=== PATIENT | female | born 1950 | race Asian ===

== ENCOUNTER 2018-01-23 14:07 | Inpatient (IN) | payer MEDICARE, BC ==
[2018-01-23 14:35] LABS: ADD MAN DIFF? NO
[2018-01-23 14:40] LABS: BASOPHIL # 0.1 10^3/ul (0.0-0.1); BASOPHILS % 0.7 % (0.0-2.0); EOSINOPHILS # 0.1 10^3/ul (0.0-0.5); EOSINOPHILS % 0.6 % (0.0-7.0); HEMATOCRIT 45.1 % (37.0-47.0); HEMOGLOBIN 14.1 g/dl (12.0-16.0); LYMPHOCYTES # 3.1 10^3/ul (0.8-2.9); LYMPHOCYTES % 32.5 % (15.0-51.0); MEAN CORPUSCULAR HEMOGLOBIN 21.6 pg (29.0-33.0); MEAN CORPUSCULAR HGB CONC 31.3 g/dl (32.0-37.0); MEAN PLATELET VOLUME 9.4 fl (7.4-10.4); MONOCYTE # 0.7 10^3/ul (0.3-0.9); MONOCYTES % 7.5 % (0.0-11.0); NEUTROPHIL # 5.6 10^3/ul (1.6-7.5); NEUTROPHILS % 58.5 % (39.0-77.0); PLATELET COUNT 484 10^3/UL (140-415); RED BLOOD COUNT 6.54 10^6/ul (4.20-5.40)
[2018-01-23 14:40] LABS: WHITE BLOOD COUNT 9.5 10^3/ul (4.8-10.8)
[2018-01-23 14:54] LABS: HEMOGLOBIN A1C 5.5 % (0-5.9)
[2018-01-23 15:00] LABS: INR 0.87; PROTIME 11.9 Sec (11.9-14.9); PT RATIO 0.9
[2018-01-23 15:01] LABS: PARTIAL THROMBOPLASTIN TIME 30.9 Sec (23.0-35.0)
[2018-01-23 15:37] LABS: ANION GAP 15 (5-13); BLOOD UREA NITROGEN 22 mg/dl (7-20); CARBON DIOXIDE 27 mmol/L (21-31); CHLORIDE 100 mmol/L (97-110); CHOL/HDL RATIO 4.8 RATIO; CHOLESTEROL 235 mg/dl (100-200); CREATININE 0.91 mg/dl (0.44-1.00); Estimated GFR > 60 mL/min (>60); GLUCOSE 142 mg/dl (70-220); HDL CHOLESTEROL 48 mg/dl (35-98); LDL CHOLESTEROL,CALCULATED 144 mg/dl; POTASSIUM 3.1 mmol/L (3.5-5.1); SODIUM 142 mmol/L (135-144); TRIGLYCERIDES 215 mg/dl (0-149)
[2018-01-23 15:46] LABS: TROPONIN-I < 0.012 ng/ml (0.000-0.120)
[2018-01-23] MEDS: ASPIRIN 325 MG TAB PO (15:47)
[2018-01-23 16:03] LABS: ADD UMIC YES; UR ASCORBIC ACID NEGATIVE (NEGATIVE); UR BILIRUBIN (Dip) NEGATIVE (NEGATIVE); UR BLOOD (Dip) 1+ mg/dL (NEGATIVE); UR CLARITY SLIGHTLY CLOUDY (CLEAR); UR COLOR YELLOW (YELLOW); UR GLUCOSE (Dip) NEGATIVE (NEGATIVE); UR KETONES (Dip) NEGATIVE (NEGATIVE); UR LEUKOCYTE ESTERASE (Dip) NEGATIVE Leu/ul (NEGATIVE); UR MUCUS FEW /HPF (NONE SEEN); UR NITRITE (Dip) NEGATIVE (NEGATIVE); UR RBC 3 /HPF (0-5); UR TOTAL PROTEIN (Dip) 3+ mg/dl (NEGATIVE); UR UROBILINOGEN (Dip) NEGATIVE (NEGATIVE); UR WBC 6 /HPF (0-5)
[2018-01-23 16:15] LABS: AMPHETAMINE/METHAMPHETAMINE Negative (NEGATIVE); BARBITURATES Negative (NEGATIVE); BENZODIAZEPINES Negative (NEGATIVE); CANNABINOIDS Negative (NEGATIVE); COCAINE Negative (NEGATIVE); OPIATES Negative (NEGATIVE)
[2018-01-23] MEDS: SOD CHLORIDE 0.45% 1,000 ML IV (16:33)
[2018-01-23] MEDS ORDERED: DOCUSATE SODIUM 100 MG CAP PO (17:00)
[2018-01-23] MEDS ORDERED: ONDANSETRON 4 MG INJ IV (17:00)
[2018-01-23] MEDS ORDERED: LORAZEPAM 2 MG INJ IV (17:00)
[2018-01-23] MEDS ORDERED: NITROGLYCERIN (SL) 0.4 MG TAB SL (17:00)
[2018-01-23] MEDS ORDERED: HYDROCODONE/APAP (5/325) TAB PO (17:00)
[2018-01-23] MEDS ORDERED: NACL 0.9% 3 ML SYG IV (17:00)
[2018-01-23] MEDS ORDERED: morphine 2 MG INJ IV (17:00)
[2018-01-23] MEDS ORDERED: NA PHOSPHATE/BIPHOS 133 ML ENEMA PR (17:00)
[2018-01-23] MEDS ORDERED: ALBUTEROL/IPRATROPIUM (NEB) 3 ML AMP HHN (17:00)
[2018-01-23] MEDS ORDERED: MAGNESIUM HYDROXIDE 30ML CUP PO (17:00)
[2018-01-23 17:22] LABS: INR 0.86; PROTIME 11.8 Sec (11.9-14.9); PT RATIO 0.9
[2018-01-23 17:23] LABS: PARTIAL THROMBOPLASTIN TIME 30.4 Sec (23.0-35.0)
[2018-01-23] MEDS: hydrALAzine 20 MG INJ IV (17:59)
[2018-01-23] MEDS ORDERED: HEPARIN 5,000 UNIT/0.5 ML VIAL (20:11)
[2018-01-23 20:15] LABS: FREE T4 (FREE THYROXINE) 1.37 ng/dl (0.78-2.44)
[2018-01-23] MEDS: ATORVASTATIN 80 MG TAB PO (20:32)
[2018-01-23] MEDS: HEPARIN 5,000 UNIT/1 ML VIAL SC (20:46)
[2018-01-24] MEDS: SOD CHLORIDE 0.45% 1,000 ML IV ×2 (05:02→19:13)
[2018-01-24] MEDS: PANTOPRAZOLE (EC) 40 MG TAB PO (05:03)
[2018-01-24 06:11] LABS: ADD MAN DIFF? NO
[2018-01-24 06:12] LABS: BASOPHIL # 0.1 10^3/ul (0.0-0.1); BASOPHILS % 0.9 % (0.0-2.0); EOSINOPHILS % 0.5 % (0.0-7.0); HEMATOCRIT 41.1 % (37.0-47.0); LYMPHOCYTES % 26.9 % (15.0-51.0); MEAN CORPUSCULAR HEMOGLOBIN 21.8 pg (29.0-33.0); MEAN CORPUSCULAR HGB CONC 31.6 g/dl (32.0-37.0); MEAN CORPUSCULAR VOLUME 68.8 fl (82.0-101.0); MEAN PLATELET VOLUME 9.9 fl (7.4-10.4); MONOCYTE # 0.5 10^3/ul (0.3-0.9); MONOCYTES % 6.9 % (0.0-11.0); NEUTROPHIL # 4.9 10^3/ul (1.6-7.5); NEUTROPHILS % 64.4 % (39.0-77.0); PLATELET COUNT 453 10^3/UL (140-415); RED BLOOD COUNT 5.97 10^6/ul (4.20-5.40)
[2018-01-24 06:12] LABS: WHITE BLOOD COUNT 7.6 10^3/ul (4.8-10.8)
[2018-01-24 06:40] LABS: ANION GAP 14 (5-13); BLOOD UREA NITROGEN 16 mg/dl (7-20); CALCIUM 9.2 mg/dl (8.4-10.2); CARBON DIOXIDE 27 mmol/L (21-31); CHLORIDE 101 mmol/L (97-110); CREATININE 0.73 mg/dl (0.44-1.00); Estimated GFR > 60 mL/min (>60); GLUCOSE 108 mg/dl (70-220); PHOSPHORUS 3.6 mg/dl (2.5-4.9); SODIUM 142 mmol/L (135-144)
[2018-01-24 06:42] LABS: CHOLESTEROL 193 mg/dl (100-200)
[2018-01-24 06:42] LABS: CHOL/HDL RATIO 4.2 RATIO; HDL CHOLESTEROL 45 mg/dl (35-98); LDL CHOLESTEROL,CALCULATED 110 mg/dl; TRIGLYCERIDES 189 mg/dl (0-149)
[2018-01-24 07:35] LABS: POTASSIUM 2.9 mmol/L (3.5-5.1)
[2018-01-24 07:53] LABS: HEMOGLOBIN A1C 5.6 % (0-5.9)
[2018-01-24] MEDS ORDERED: HEPARIN 5,000 UNIT/0.5 ML VIAL ×2 (08:22→20:19)
[2018-01-24] MEDS: POTASSIUM CHLORIDE 100 ML IVPB (08:30)
[2018-01-24] MEDS: ASPIRIN (EC) 325 MG TAB PO (08:31)
[2018-01-24] MEDS: POTASSIUM CHLORIDE 20 MEQ POWDER FOR ORAL SOLN PO (08:31)
[2018-01-24] MEDS: HEPARIN 5,000 UNIT/1 ML VIAL SC ×2 (08:33→20:31)
[2018-01-24] MEDS: IOHEXOL 100 ML (18:34)
[2018-01-24] MEDS: SOD CHLORIDE 0.9% 100 ML (18:34)
[2018-01-24] MEDS: ATORVASTATIN 80 MG TAB PO (20:28)
[2018-01-24] MEDS: METOPROLOL 50 MG TAB PO (20:29)
[2018-01-24 23:14] LABS: RAPID PLASMA REAGIN NONREACTIVE (NR)
[2018-01-25] MEDS: SOD CHLORIDE 0.45% 1,000 ML IV ×3 (04:37→21:53)
[2018-01-25] MEDS: PANTOPRAZOLE (EC) 40 MG TAB PO (05:06)
[2018-01-25] MEDS ORDERED: HEPARIN 5,000 UNIT/0.5 ML VIAL ×2 (09:02→21:15)
[2018-01-25 09:48] LABS: ADD MAN DIFF? NO
[2018-01-25] MEDS: ASPIRIN (EC) 81 MG TAB PO (09:50)
[2018-01-25] MEDS: AMLODIPINE 5 MG TAB PO (09:51)
[2018-01-25] MEDS: METOPROLOL 50 MG TAB PO (09:51)
[2018-01-25] MEDS: ACETAMINOPHEN 325 MG TAB PO (09:52)
[2018-01-25 09:53] LABS: WHITE BLOOD COUNT 7.5 10^3/ul (4.8-10.8)
[2018-01-25 09:53] LABS: BASOPHIL # 0.1 10^3/ul (0.0-0.1); BASOPHILS % 0.9 % (0.0-2.0); EOSINOPHILS # 0.1 10^3/ul (0.0-0.5); EOSINOPHILS % 0.7 % (0.0-7.0); HEMATOCRIT 40.7 % (37.0-47.0); HEMOGLOBIN 12.6 g/dl (12.0-16.0); LYMPHOCYTES # 2.6 10^3/ul (0.8-2.9); LYMPHOCYTES % 34.7 % (15.0-51.0); MEAN CORPUSCULAR HEMOGLOBIN 21.6 pg (29.0-33.0); MEAN CORPUSCULAR VOLUME 69.8 fl (82.0-101.0); MEAN PLATELET VOLUME 9.4 fl (7.4-10.4); MONOCYTE # 0.5 10^3/ul (0.3-0.9); MONOCYTES % 6.9 % (0.0-11.0); NEUTROPHIL # 4.2 10^3/ul (1.6-7.5); NEUTROPHILS % 56.7 % (39.0-77.0); PLATELET COUNT 425 10^3/UL (140-415); RED BLOOD COUNT 5.83 10^6/ul (4.20-5.40); RED CELL DISTRIBUTION WIDTH 14.9 % (11.5-14.5)
[2018-01-25] MEDS: HEPARIN 5,000 UNIT/1 ML VIAL SC ×2 (09:58→21:29)
[2018-01-25 10:24] LABS: ANION GAP 12 (5-13); BLOOD UREA NITROGEN 14 mg/dl (7-20); CALCIUM 9.6 mg/dl (8.4-10.2); CARBON DIOXIDE 28 mmol/L (21-31); CHLORIDE 101 mmol/L (97-110); CREATININE 0.68 mg/dl (0.44-1.00); Estimated GFR > 60 mL/min (>60); GLUCOSE 88 mg/dl (70-220); SODIUM 141 mmol/L (135-144)
[2018-01-25] MEDS: LISINOPRIL 20 MG TAB PO (18:11)
[2018-01-25] MEDS: LEVOFLOXACIN 250 MG TAB PO (18:11)
[2018-01-25] MEDS: ATORVASTATIN 80 MG TAB PO (21:18)
[2018-01-26] MEDS: SOD CHLORIDE 0.45% 1,000 ML IV ×2 (02:06→11:13)
[2018-01-26] MEDS: LEVOFLOXACIN 250 MG TAB PO (05:19)
[2018-01-26] MEDS: PANTOPRAZOLE (EC) 40 MG TAB PO (05:20)
[2018-01-26 07:24] LABS: ADD MAN DIFF? NO
[2018-01-26 07:32] LABS: WHITE BLOOD COUNT 7.1 10^3/ul (4.8-10.8)
[2018-01-26 07:32] LABS: BASOPHIL # 0.1 10^3/ul (0.0-0.1); BASOPHILS % 1.1 % (0.0-2.0); EOSINOPHILS # 0.1 10^3/ul (0.0-0.5); HEMATOCRIT 36.9 % (37.0-47.0); HEMOGLOBIN 11.4 g/dl (12.0-16.0); LYMPHOCYTES # 2.3 10^3/ul (0.8-2.9); LYMPHOCYTES % 32.3 % (15.0-51.0); MEAN CORPUSCULAR HEMOGLOBIN 21.4 pg (29.0-33.0); MEAN CORPUSCULAR HGB CONC 30.9 g/dl (32.0-37.0); MEAN CORPUSCULAR VOLUME 69.2 fl (82.0-101.0); MONOCYTE # 0.4 10^3/ul (0.3-0.9); MONOCYTES % 5.7 % (0.0-11.0); NEUTROPHIL # 4.2 10^3/ul (1.6-7.5); NEUTROPHILS % 59.8 % (39.0-77.0); PLATELET COUNT 397 10^3/UL (140-415); RED BLOOD COUNT 5.33 10^6/ul (4.20-5.40); RED CELL DISTRIBUTION WIDTH 15.1 % (11.5-14.5)
[2018-01-26 07:59] LABS: ANION GAP 12 (5-13); BLOOD UREA NITROGEN 18 mg/dl (7-20); CALCIUM 9.1 mg/dl (8.4-10.2); CARBON DIOXIDE 25 mmol/L (21-31); CHLORIDE 106 mmol/L (97-110); CREATININE 0.72 mg/dl (0.44-1.00); Estimated GFR > 60 mL/min (>60); GLUCOSE 95 mg/dl (70-220); POTASSIUM 3.6 mmol/L (3.5-5.1); SODIUM 143 mmol/L (135-144)
[2018-01-26] MEDS ORDERED: HEPARIN 5,000 UNIT/0.5 ML VIAL (09:00)
[2018-01-26] MEDS: ASPIRIN (EC) 81 MG TAB PO (09:13)
[2018-01-26] MEDS: LISINOPRIL 20 MG TAB PO ×2 (09:13→21:06)
[2018-01-26] MEDS: AMLODIPINE 5 MG TAB PO (09:13)
[2018-01-26] MEDS: HEPARIN 5,000 UNIT/1 ML VIAL SC (09:19)
[2018-01-26] MEDS: NITROGLYCERIN AEROSOL (4.9 GM) (11:20)
[2018-01-26] MEDS: SOD CHLORIDE 0.9% 100 ML (12:52)
[2018-01-26] MEDS: IOHEXOL 100 ML (12:53)
[2018-01-26] MEDS ORDERED: APIXABAN 5 MG TABLET PO ×2 (15:00→17:00)
[2018-01-26] MEDS: ATORVASTATIN 80 MG TAB PO (21:06)
[2018-01-26] MEDS: APIXABAN 5 MG TABLET PO (21:06)
[2018-01-27] MEDS: PANTOPRAZOLE (EC) 40 MG TAB PO (06:00)
[2018-01-27] MEDS: LEVOFLOXACIN 250 MG TAB PO (06:00)
[2018-01-27 06:12] LABS: ADD MAN DIFF? NO
[2018-01-27 06:25] LABS: BASOPHIL # 0.1 10^3/ul (0.0-0.1); BASOPHILS % 0.7 % (0.0-2.0); EOSINOPHILS # 0.1 10^3/ul (0.0-0.5); EOSINOPHILS % 1.2 % (0.0-7.0); HEMATOCRIT 36.7 % (37.0-47.0); HEMOGLOBIN 11.5 g/dl (12.0-16.0); LYMPHOCYTES % 26.7 % (15.0-51.0); MEAN CORPUSCULAR HEMOGLOBIN 21.7 pg (29.0-33.0); MEAN CORPUSCULAR HGB CONC 31.3 g/dl (32.0-37.0); MEAN CORPUSCULAR VOLUME 69.2 fl (82.0-101.0); MEAN PLATELET VOLUME 9.6 fl (7.4-10.4); MONOCYTE # 0.5 10^3/ul (0.3-0.9); MONOCYTES % 6.1 % (0.0-11.0); NEUTROPHIL # 4.9 10^3/ul (1.6-7.5); PLATELET COUNT 378 10^3/UL (140-415); RED CELL DISTRIBUTION WIDTH 14.8 % (11.5-14.5)
[2018-01-27 06:25] LABS: WHITE BLOOD COUNT 7.5 10^3/ul (4.8-10.8)
[2018-01-27 06:54] LABS: ANION GAP 9 (5-13); BLOOD UREA NITROGEN 21 mg/dl (7-20); CALCIUM 9.2 mg/dl (8.4-10.2); CARBON DIOXIDE 24 mmol/L (21-31); CHLORIDE 108 mmol/L (97-110); CREATININE 0.78 mg/dl (0.44-1.00); Estimated GFR > 60 mL/min (>60); GLUCOSE 100 mg/dl (70-220); POTASSIUM 3.8 mmol/L (3.5-5.1); SODIUM 141 mmol/L (135-144)
[2018-01-27] MEDS: AMLODIPINE 10 MG TAB PO (08:03)
[2018-01-27] MEDS: LISINOPRIL 20 MG TAB PO (08:04)
[2018-01-27] MEDS: APIXABAN 5 MG TABLET PO (08:04)
== END 2018-01-27 17:22 | disposition home health service (06) | DRG 65 ==
LOC: TEL 18:30 → E/R 14:07 → TEL 16:00
DX: I63.81 Other cerebral infarction due to occlusion or stenosis of small artery (principal); N39.0 Urinary tract infection, site not specified; I42.0 Dilated cardiomyopathy; I50.20 Unspecified systolic (congestive) heart failure; G83.14 Monoplegia of lower limb affecting left nondominant side; Z86.73 Personal history of transient ischemic attack (TIA), and cerebral infarction without residual deficits; E78.00 Pure hypercholesterolemia, unspecified; I69.322 Dysarthria following cerebral infarction; I44.7 Left bundle-branch block, unspecified; I65.21 Occlusion and stenosis of right carotid artery; I11.0 Hypertensive heart disease with heart failure
CPT/HCPCS: 36415; 70450; 70496; 70498; 70551; 71045; 75571; 75574; 80048; 80061; 80307; 81001; 82962; 83036; 83735; 84100; 84439; 84443; 84484; 85025; 85610; 85730; 86592; 87086; 92610; 93005; 93306; 93880; 97110; 97116; 97161; 97166; 97530; 99285-25